=== PATIENT | male | born 1980 | race Caucasian/White ===

== ENCOUNTER 2020-10-20 13:15 | Emergency (ER) | payer OTHER ==
[~2020-10-20] VITALS: Ht 185.4 cm; Wt 90.7 kg
[2020-10-20] MEDS ORDERED: AUGMENTIN 875-875 MG PO ×2 (13:56→14:29)
[2020-10-20] MEDS ORDERED: IBU800 MG PO ×2 (13:56→14:29)
[2020-10-20] MEDS ORDERED: CORTISPORIN SUS10 ML OT ×2 (13:56→14:29)
== END 2020-10-20 14:08 | disposition home or self-care (01) ==
LOC: ED 13:15
DX: H60.92 Unspecified otitis externa, left ear (principal); H66.92 Otitis media, unspecified, left ear; F17.200 Nicotine dependence, unspecified, uncomplicated